=== PATIENT | female | born 1945 | race Caucasian/White ===

== ENCOUNTER → 2016-10-07 | Outpatient (CLI) | payer MEDICARE ==
[~2016-10-07] MED LIST: ALEVE 220MG220 MG PO; ASPIRIN 32325 MG/TAB PO; CYMBALTA 60MG60 MG PO; GLUCOPHAGE1000 MG PO; GLUCOPHAGE500 MG/TAB PO; LIPITOR 10MG10 MG PO; NEXIUM40 MG PO; ORENCIA125 MG/ML SC; PLAVIX 75MG TAB75 MG PO; PREDNISONE 5MG5 MG PO; PREDNISONE10 MG PO; TYLENOL 325MG325 MG PO; ULTRAM50 MG PO; ZESTRIL 10MG10 MG PO; [UNRECOGNIZED DRUG - OTHER] PO; [UNRECOGNIZED DRUG - OTHER] PO; amaryl PO
== END ==
LOC: COL.RAD 11:50
DX: R10.9 Unspecified abdominal pain (principal)

== ENCOUNTER 2022-10-09 07:36 | Emergency (ER) | payer MEDICARE ==
[~2022-10-09] VITALS: Ht 165.1 cm; Wt 60.0 kg
[2022-10-09 07:45] VITALS: TEMP 99.8
[2022-10-09] MEDS ORDERED: DIABETA 5MG5 MG/TAB PO (07:55)
[2022-10-09] MEDS ORDERED: ZOLOFT 25MG25 MG PO (07:57)
[2022-10-09] MEDS ORDERED: VITAMIND3 5000 PO (07:59)
[2022-10-09 10:10] VITALS: BP 150/70; PULSE 78
== END 2022-10-09 10:10 | disposition home or self-care (01) ==
LOC: COL.ER 07:36
DX: S09.90XA Unspecified injury of head, initial encounter (principal); S80.212A Abrasion, left knee, initial encounter; S29.9XXA Unspecified injury of thorax, initial encounter; M54.50 Low back pain, unspecified; R10.9 Unspecified abdominal pain; Z86.73 Personal history of transient ischemic attack (TIA), and cerebral infarction without residual deficits; Z88.5 Allergy status to narcotic agent; Z79.02 Long term (current) use of antithrombotics/antiplatelets; W01.198A Fall on same level from slipping, tripping and stumbling with subsequent striking against other object, initial encounter
CPT/HCPCS: A9284; J3010; Q9967